=== PATIENT | female | born 1960 | race Two or more races ===

== ENCOUNTER → 2024-07-19 | Outpatient (CLI) | payer BC, SELFPAY ==
--- NOTE | 2024-07-19 | XR_ITS ---
Examination: Foot, left, 3 views Technique: AP, oblique, lateral views foot, 3 views Date and time of exam: July 19, 2024 1301 hours INDICATIONS: Left foot heel pain beginning 10 years ago FINDINGS: 3 mm, 12 mm plantar bony calcaneal spurs No fracture or dislocation Mild osteoarthritis first metatarsophalangeal joint IMPRESSION: 3 mm, 12 mm plantar bony calcaneal spurs
--- NOTE | 2024-07-19 | XR_ITS ---
Examination: Bilateral knees, standing AP single view. Technique: Standing AP bilateral knees, standing single view Exam date and time: July 19, 2024 1301 hours INDICATIONS: Bilateral knee pain beginning 4 years ago. FINDINGS: Moderate to advanced osteoarthritis lateral joint space right knee Advanced narrowing and osteoarthritis medial joint space left knee Significant osteoarthritis lateral joint space left knee No fracture or dislocation involving either knee IMPRESSION: Advanced osteoarthritis medial lateral joint spaces left knee
== END | disposition home or self-care (01) ==
LOC: CDIM 12:08
PROVIDERS: PCP Family Medicine; Referring Provider Physician Assistant; Visit Provider Physician Assistant
DX: M77.32 Calcaneal spur, left foot (principal); M17.0 Bilateral primary osteoarthritis of knee
CPT/HCPCS: 73565; 73630

== ENCOUNTER → 2024-07-26 | Outpatient (CLI) | payer BC, SELFPAY ==
--- NOTE | 2024-07-26 09:30 | XR_ITS ---
Examination: Screening digital mammography, bilateral Computer aided detection 3-D breast Tomosynthesis, bilateral Date and time of exam: July 26, 2024 0920 hours Compared to mammograms dating to August 04, 2017 Indication: Screening Technique: Nonmagnified MLO, CC views of the breasts to been obtained, reconstructed from 3-D Tomosynthesis images. R2 computer aided detection program utilized for evaluation of suspicious masses and/or abnormal calcifications. 3-D Tomosynthesis images obtained. Findings: Scattered areas of fibroglandular density. Benign calcifications including benign vascular calcifications. No interval suspicious masses Impression: BI-RADS category II: Benign Findings. Recommend 1 year follow-up mammogram.
== END | disposition home or self-care (01) ==
PROVIDERS: PCP Physician Assistant; Referring Provider Physician Assistant; Visit Provider Physician Assistant
DX: Z12.31 Encounter for screening mammogram for malignant neoplasm of breast (principal); R92.323 Mammographic fibroglandular density, bilateral breasts; R92.1 Mammographic calcification found on diagnostic imaging of breast
CPT/HCPCS: 77063; 77067

== ENCOUNTER → 2024-07-27 | Outpatient (BNVA) | payer BC, SELFPAY | END | disposition home or self-care (01) | PROVIDERS: PCP Urology; Referring Provider Urology; Visit Provider Urology | DX: R35.0 Frequency of micturition (principal); Z87.442 Personal history of urinary calculi; I10 Essential (primary) hypertension; E66.9 Obesity, unspecified; Z68.36 Body mass index [BMI] 36.0-36.9, adult | CPT/HCPCS: 81003; 99212; G0463 ==

== ENCOUNTER → 2024-09-02 | Outpatient (CLI) | payer BC, SELFPAY ==
--- NOTE | 2024-09-02 | XR_ITS ---
Examination: Shoulder,left, 3 views Technique: Shoulder AP internal rotation, AP external rotation, Y view shoulder, 3 views Exam date and time :September 02, 2024 1247 hours INDICATIONS: Numbness in the arm after vaccine injection one month ago FINDINGS: Moderate osteopenia Mild narrowing glenohumeral joint Moderate osteoarthritis acromioclavicular joint No fracture IMPRESSION: Moderate osteoarthritis acromioclavicular joint
--- NOTE | 2024-09-02 | XR_ITS ---
Examination: Wrist, left 3 views Technique: Wrist AP, oblique, lateral 3 views Date and time of exam: September 02, 2024 1257 hours INDICATIONS: Wrist pain this month FINDINGS: Mild osteoarthritis radiocarpal navicular trapezium first carpometacarpal joints No wrist fracture or dislocation IMPRESSION: Mild osteoarthritis
--- NOTE | 2024-09-02 | XR_ITS ---
EXAMINATION: Ankle, right 3 views . Technique: Ankle AP, oblique, lateral 3 views Date and time of exam: September 02, 2024 1247 hours INDICATIONS: Ankle pain one month. FINDINGS: No fracture or dislocation Small old bone density at the fibular tip Mild osteoarthritis tibiotalar joint 4 mm plantar bony calcaneal spur IMPRESSION: Mild osteoarthritis tibiotalar joint
== END | disposition home or self-care (01) ==
PROVIDERS: PCP Physician Assistant; Referring Provider Physician Assistant; Visit Provider Physician Assistant
DX: M19.032 Primary osteoarthritis, left wrist (principal); M19.012 Primary osteoarthritis, left shoulder; M19.011 Primary osteoarthritis, right shoulder
CPT/HCPCS: 73030; 73110; 73610

== ENCOUNTER 2025-02-09 13:17 | Emergency (ER) | payer BC, SELFPAY ==
[2025-02-09 14:13] VITALS: BP 166/81; PULSE 89; RESP 18; TEMP 37.1; O2SAT 96
--- NOTE | 2025-02-09 15:18 | XR_ITS ---
Examination: Knee, right , 3 views Technique: Knee AP, lateral, oblique 3 views Date and time of exam: February 09, 2025 1524 hours INDICATIONS: Patient fell yesterday with injury to the knee, knee pain. FINDINGS: Moderate to advanced tricompartment osteoarthritis, most severe patellofemoral joint Moderate knee effusion Severe osteopenia No acute fracture IMPRESSION: No acute fracture
--- NOTE | 2025-02-09 15:18 | XR_ITS ---
EXAMINATION: Ankle, left 3 views . Technique: Ankle AP, oblique, lateral 3 views Date and time of exam: February 09, 2025 1524 hours INDICATIONS: Patient fell yesterday with injury to the ankle, ankle pain. FINDINGS: Bimalleolar soft tissue swelling No acute fracture No dislocation IMPRESSION: No acute fracture
--- NOTE | 2025-02-09 15:20 | PD.EDFALL ---
ED Fall Injury RME/HPI General Chief Complaint: Fall Stated Complaint: FELL, R) KNEE & L) ANKLE PAIN Time Seen by Provider: 02/09/25 15:18 Arrival date/time: 02/09/25 13:17 Limitations: no limitations RME / HPI RME / HPI Narrative: 62-year-old female is here today with left ankle and right knee pain. She states she had a ground-level, mechanical, fall yesterday. She has swelling along the left lateral ankle and has right knee pain. She has no open wounds. Denies any head strike. Has no head, neck, or spine injury. She has no other acute complaints or concerns. Related Data Home Medications ?Medication ?Instructions ?Recorded ?Confirmed cholecalciferol (vitamin D3) 25 1,000 unit PO DAILY 11/14/20 07/27/24 mcg (1,000 unit) capsule (Vitamin D3) omega-3 fatty acids-vitamin E 1,000 cap PO DAILY 11/14/20 07/27/24 1,000 mg capsule vitamin B complex 1 tab PO DAILY 11/14/20 07/27/24 vitamin E (dl, acetate) 180 mg 400 unit PO DAILY 11/14/20 07/27/24 (400 unit) capsule amlodipine 10 mg tablet 10 mg PO QDAY 01/23/22 07/27/24 aspirin 81 mg tablet,delayed 81 mg PO QDAY 01/23/22 07/27/24 release potassium citrate 15 mEq (1,620 15 meq PO BID 01/27/23 07/27/24 mg) tablet,extended release hydrochlorothiazide 25 mg tablet 25 mg PO QDAY 07/29/23 07/27/24 Allergies Allergy/AdvReac Type Severity Reaction Status Date / Time Penicillins Allergy Severe Itching Verified 02/09/25 13:21 peanut Allergy Intermediate Anaphylaxis Verified 02/09/25 13:21 Review of Systems Review of Systems Systems Reviewed: All systems reviewed, normal except as documented ED Exam General Limitations: Present no limitations General appearance: Present alert Head Head exam: Present atraumatic Eye Eye exam: Present normal appearance, PERRL and EOMI ENT ENT exam: Present normal exam, normal oropharynx and mucous membranes moist Neck Neck exam: Present normal inspection, full ROM and trachea midline Chest Chest inspection: Present normal inspection and symmetric chest wall rise Respiratory Respiratory exam: Present normal lung sounds bilaterally Cardiovascular Cardiovascular exam: Present regular rate, normal rhythm and normal heart sounds Abdominal Exam Abdominal exam: Present soft Extremities Exam Extremities exam: Present full ROM and other (She has mild tenderness and edema at the right knee. No joint laxity or crepitus is present. There is swelling lateral to the left lateral malleoli. There is no joint crepitus, no joint laxity is present. No open wounds.) Back Exam Back exam: Present normal inspection and full ROM Neurological Exam Neurological exam: Present alert and oriented X3 Psychiatric Psychiatric exam: Present normal affect and normal mood Skin Skin exam: Present warm, dry, intact and normal color Course Quality Measures none Orders Category Date Time Status splint [Splint / Immobilizer] STAT Care 02/09/25 19:52 Active XR ankle comp LT min 3V Stat Exams 02/09/25 15:18 Completed XR knee RT 3V Stat Exams 02/09/25 15:18 Completed Vital Signs Vital signs: Vital Signs Temperature 98.7 F 02/09/25 14:13 Pulse Rate 89 02/09/25 14:13 Respiratory Rate 18 02/09/25 14:13 Blood Pressure 166/81 H 02/09/25 14:13 Pulse Oximetry (%) 96 02/09/25 14:13 Oxygen Delivery Method Room Air 02/09/25 14:13 Fall MDM Narrative MDM Narrative:: 62-year-old female is here today with left ankle and right knee pain. She states she had a ground-level, mechanical, fall yesterday. She has swelling along the left lateral ankle and has right knee pain. She has no open wounds. Denies any head strike. Has no head, neck, or spine injury. She has no other acute complaints or concerns. On exam, patient is nontoxic-appearing. Vital signs are stable. She is weightbearing with discomfort. She has swelling in her right knee and left ankle. Planes were obtained which showed no acute osseous injury. She was offered crutches, however states she has crutches at home in addition to a walker. She does not want crutches here. She is placed in a ankle splint. She is advised to apply frequent cold compresses. Use Tylenol and ibuprofen for comfort. Follow-up with her primary doctor. Return here at anytime for any worsening or emergent changes. Patient data External records reviewed:: None Clinical information provided by:: patient Social determinants that could affect healthcare access:: none Patient has the following chronic illnesses:: n/a How is presenting disease/condition affected by chronic disease/condition?: uneffected by Evaluation data The following diagnostics were reviewed and interpreted by me:: radiology exam(s) (No acute osseous injury) Lab and/or radiology exams considered but not ordered:: n/a Interpretation Summary: No acute osseous injury Medications / Prescriptions Medications or Prescriptions considered but not ordered:: n/a Medication administrations:: n/a Consultations Consultation(s) initiated? (list below): No Diagnosis Fall Differential Diagnosis: other (Knee fracture, ankle sprain, ankle fracture) Most likely diagnosis given after review of the tests above:: Knee sprain, ankle sprain Admission Indicated Admission indicated?: not indicated Admission Request Was there a request for admission?: No Disposition Plan Disposition Plan: Discharge Discharge Attestation Discharge Attestation: The patient and all family members were given an opportunity to ask questions and understood the discharge instructions. Discharge instructions specifically effects, indications for sooner follow up or return to the emergency department, and the expected course of current diagnosis. Patient condition: Stable Discharge Plan Plan Patient Disposition: HOME (Self Care) Patient condition on transfer: Stable Prescriptions/Referrals Prescriptions/Med Rec: No Action amlodipine 10 mg tablet 10 mg PO QDAY aspirin 81 mg tablet,delayed release (DR/EC) 81 mg PO QDAY potassium citrate 15 mEq tablet extended release 15 meq PO BID hydrochlorothiazide 25 mg tablet 25 mg PO QDAY cholecalciferol (vitamin D3) [Vitamin D3] 25 mcg (1,000 unit) Capsule 1,000 unit PO DAILY omega-3 fatty acids-vitamin E 1,000 mg Capsule 1,000 cap PO DAILY vitamin E (dl, acetate) 400 unit Capsule 400 unit PO DAILY vitamin B complex Tablet 1 tab PO DAILY Referrals: Mariza Bearden PA-C [Primary Care Provider] - In 1 week Problem List Clinical Impression: Ankle sprain, Sprain of right knee Patient/Caregiver Discharge Instructions Education Materials: ED Knee Sprain, ED Ankle Sprain (Adult) Additional Instructions: - Apply frequent cold compresses. - Use the provided ankle splint. - Use your walker or crutches that you have. - Use Tylenol and ibuprofen for comfort. - Follow-up with your primary clinic within 1 to 2 weeks for recheck. - Return here as needed for any worsening or emergent changes. Print Language: Armenian Stand Alone Forms: [facility] Award Info., Patient Portal Info Letter
== END 2025-02-09 20:14 | disposition home or self-care (01) ==
PROVIDERS: Emergency Provider Physician Assistant Medical; PCP Physician Assistant
DX: S83.91XA Sprain of unspecified site of right knee, initial encounter (principal); S93.409A Sprain of unspecified ligament of unspecified ankle, initial encounter; W18.30XA Fall on same level, unspecified, initial encounter; S99.912A Unspecified injury of left ankle, initial encounter
CPT/HCPCS: 73562; 73610; 99283

== ENCOUNTER → 2025-05-26 | Outpatient (CLI) | payer BC, SELFPAY ==
--- NOTE | 2025-05-26 14:01 | XR_ITS ---
Examination: Knee, left, 3 views Technique: Knee AP, lateral, oblique 3 views Date and time of exam: May 26, 2025, 1429 hours INDICATIONS: Left knee pain beginning 4 months ago. FINDINGS: Advanced tricompartment osteoarthritis Moderate knee effusion No fracture IMPRESSION: Advanced tricompartment osteoarthritis, including 8 mm ossified anterior joint body
[2025-05-26 16:14] LABS: Glucose Estimated Average 148 mg/dL (80-131); Hemoglobin A1C 6.8 % Hgb (4.8-6.0)
== END | disposition home or self-care (01) ==
LOC: COPL 13:54
PROVIDERS: PCP Family Medicine; Referring Provider Family Medicine; Visit Provider Radiology Diagnostic Radiology
DX: M17.12 Unilateral primary osteoarthritis, left knee (principal); R73.09 Other abnormal glucose
CPT/HCPCS: 36415; 73562; 83036